=== PATIENT | female | born 1970 | race Caucasian/White ===

== ENCOUNTER 2017-04-14 15:00 | Outpatient (RCR) | payer OTHER | END 2017-04-15 | disposition home or self-care (01) | PROVIDERS: ATTEND Physical Medicine & Rehabilitation | DX: M54.2 Cervicalgia (principal) ==

== ENCOUNTER 2019-06-18 22:24 | Emergency (ER) | payer SELFPAY ==
[~2019-06-18] VITALS: Ht 170 cm; Wt 123.2 kg
[2019-06-18] MEDS ORDERED: MEDR10TA9 (22:36)
[2019-06-18] MEDS ORDERED: LEVO50TA (22:36)
--- NOTE | 2019-06-18 22:40 | ED Integumentary General ---
General Chief Complaint: Allergic Reaction Stated Complaint: HIVES, SWOLLEN, TROUBLE BREATHING AND SWALLOWING Source: patient, spouse Exam Limitations: no limitations History of Present Illness Date Seen by Provider: Jun 18, 2019 Time Seen by Provider: 22:22 Initial Comments Patient presents to ER by private conveyance with her significant other and chief complaint that since yesterday she's had a red itchy rash over her forearms another sun exposed placed. Today she got a little worse in her face. She's been using a Benadryl cream but she thought that it burned the worse. She's not having any stridor or wheezing shortness of air but she said it was hard to swallow occasionally is worried she might be developing anaphylaxis for the last 2 days. She's been stable on Synthroid and a shot monthly to restart her period. She's never had anaphylaxis before. She denies a history of lung disease. She follows with a doctor in [place], [place]. She is in the process of switching to a doctor locally. Allergies and Home Medications Patient Home Medication List Home Medication List Reviewed: Yes Review of Systems Review of Systems Constitutional: No chills, No diaphoresis EENTM: No ear discharge, No hearing loss Respiratory: No cough, No dyspnea on exertion, No short of breath, No stridor, No wheezing Cardiovascular: No chest pain, No edema, No palpitations Gastrointestinal: No abdominal pain, No melena, No nausea Genitourinary: No discharge, No dysuria Past Gaaysdn-Cnytvh-Ojxgzr Hx Patient Social History Alcohol Use: Denies Use Recreational Drug Use: No Smoking Status: Never a Smoker Recent Foreign Travel: No Contact w/Someone Who Travel: No Physical Exam Vital Signs Capillary Refill : General Appearance: WD/WN, no apparent distress HEENT: PERRL/EOMI, normal ENT inspection, pharynx normal Neck: full range of motion, supple, normal inspection Cardiovascular: normal peripheral pulses, regular rate, rhythm Respiratory: no respiratory distress, no accessory muscle use Progress/Results/Core Measures Progress Progress Note : Time: 22:39 Progress Note Patient demonstrates no evidence of acute respiratory distress, stridor, difficulty swallowing. She does not have an enlarged tongue or soft tissues of the retro-oropharynx. Departure Impression Primary Impression: Rash and nonspecific skin eruption Disposition: 01 HOME, SELF-CARE Condition: Stable Departure-Patient Inst. Decision time for Depature: 22:42 Referrals: NO,LOCAL PHYSICIAN (PCP) Primary Care Physician Patient Instructions: Skin Rash (DC) Add. Discharge Instructions: The Depo-Medrol should kick in in 12-24 hours and last about 5-7 days help care of the rash. Claritin one tablet daily for itching. Benadryl 1-2 tablets every 6 hours as needed for breakthrough itching. Use a quality skin care lotion with SPF 15 or higher. All discharge instructions reviewed with patient and/or family. Voiced understanding. ONEYDA SORIANO J Jun 18, 2019 22:40
[2019-06-18] MEDS ORDERED: methylPREDNISolone 40 MG/ML (DEPO MEDROL) VIAL IM ONE (22:45)
[2019-06-18 23:01] VITALS: BP 157/80
== END 2019-06-18 23:00 | disposition home or self-care (01) ==
LOC: EDUNIT# 22:24 → ER 22:26
DX: R21 Rash and other nonspecific skin eruption (principal)
CPT/HCPCS: 96372; 99284

== ENCOUNTER 2019-07-06 17:57 | Emergency (ER) | payer SELFPAY ==
[~2019-07-06] VITALS: Ht 170 cm; Wt 119.0 kg
[~2019-07-06 17:57] MED LIST: LEVO50TA; MEDR10TA9
[2019-07-06 18:45] LABS: BASOPHILS % (AUTO) 0 % (0-10); EOSINOPHILS % (AUTO) 0 % (0-10); HEMATOCRIT 41 % (35-52); HEMOGLOBIN 13.6 G/DL (11.5-16.0); LYMPHOCYTES # (AUTO) 1.8 X 10^3 (1.0-4.0); LYMPHOCYTES % (AUTO) 6 % (12-44); MEAN CORPUSCULAR HEMOGLOBIN 28 PG (25-34); MEAN CORPUSCULAR HGB CONC 33 G/DL (32-36); MEAN CORPUSCULAR VOLUME 83 FL (80-99); MEAN PLATELET VOLUME 11.3 FL (7.4-10.4); MONOCYTES % (AUTO) 6 % (0-12); NEUTROPHILS % (AUTO) 88 % (42-75); PLATELET COUNT 340 10^3/uL (130-400); RED CELL DISTRIBUTION WIDTH 13.8 % (10.0-14.5)
[2019-07-06] MEDS ORDERED: FAMOTIDINE 20MG/2ML IV (PEPCID) IVP ONE (18:45)
[2019-07-06] MEDS ORDERED: diphenhydrAMINE 50 MG/ML INJ (BENADRYL) IVP ONE (18:45)
[2019-07-06 18:54] LABS: WHITE BLOOD COUNT 32.9 10^3/uL (4.3-11.0)
[2019-07-06 18:55] LABS: ALBUMIN 4.3 GM/DL (3.2-4.5); BILIRUBIN,TOTAL 0.3 MG/DL (0.1-1.0); CALCIUM 9.4 MG/DL (8.5-10.1); CREATININE SERUM 1.02 MG/DL (0.60-1.30); POTASSIUM 4.1 MMOL/L (3.6-5.0); TOTAL PROTEIN 8.4 GM/DL (6.4-8.2)
--- NOTE | 2019-07-06 19:02 | NUR ---
REPORT TO DEIDRE MCNULTY
[2019-07-06 19:15] LABS: TSH (THYROID ANALYZER) 1.15 UIU/ML (0.35-4.94)
[2019-07-06 19:34] LABS: BASOPHILS % (MANUAL) 0 %; EOSINOPHILS % (MANUAL) 0 %; LYMPHOCYTES % (MANUAL) 9 %; MONOCYTES % (MANUAL) 5 %; NEUTROPHILS % (MANUAL) 86 %; RBC MORPH NORMAL
[2019-07-06 19:38] LABS: TOXIC GRANULATION/VACUOLAZATIO 1+
--- NOTE | 2019-07-06 20:06 | ED General ---
General Chief Complaint: Respiratory Problems Stated Complaint: SOA Nursing Triage Note: STATES SHE WAS SEEN IN [place] LAST NIGHT FOR AN ALLERGIC REACTION, WAS GIVEN A MEDROL DOSE SIRI THAT SHE STARTED TODAY AND NOW HAS NEW ONSET SOB Nursing Sepsis Screen: No Definite Risk Source of Information: Patient Exam Limitations: No Limitations History of Present Illness Date Seen by Provider: Jul 06, 2019 Time Seen by Provider: 18:18 Initial Comments This 48-year-old woman presents to the emergency room with concerns about possible allergic reaction. She developed symptoms 2 days ago that included swelling of the face, redness of the skin, itching, difficulty breathing, and throat irritation. She went to her doctor and was referred to urgent care. There she received an injection of steroids and was started on a Medrol Dosepak along with hydroxyzine. Today she had some rebound of symptoms after taking her methylprednisolone. She states the difficulty breathing resolved by the time of her assessment. She does still have some mild itching and feels flushed. She is afebrile. She last took hydroxyzine and the Medrol dose earlier this afternoon. She had a similar reaction on June 18. She thought perhaps symptoms are related to Synthroid and Synthroid was stopped. She has appointment with an publications inspector July 20. She sees a primary care provider in [place]. Patient reports having hives earlier this evening that are now resolved. She states an allergy to prednisone. There are no hives evident at this time. Cheeks are slightly flushed. No swelling is evident. She seems slightly anxious. Allergies and Home Medications Allergies Coded Allergies: baclofen (Verified Allergy, Unknown, 06/18/19) cephalexin (Verified Allergy, Unknown, 06/18/19) cyclosporine (Verified Allergy, Unknown, 06/18/19) gabapentin (Verified Allergy, Unknown, 06/18/19) prednisone (Verified Allergy, Unknown, 06/18/19) Patient Home Medication List Home Medication List Reviewed: Yes Review of Systems Review of Systems Constitutional: no symptoms reported EENTM: see HPI Respiratory: see HPI Cardiovascular: no symptoms reported Gastrointestinal: no symptoms reported Genitourinary: no symptoms reported : No Musculoskeletal: no symptoms reported Skin: see HPI Psychiatric/Neurological: See HPI Hematologic/Lymphatic: No Symptoms Reported Immunological/Allergic: see HPI Past Uxnbqhz-Ygxsdu-Jhbjqn Hx Past Med/Social Hx: Reviewed Nursing Past Med/Soc Hx, Reviewed and Corrections made Patient Social History Alcohol Use: Denies Use Recreational Drug Use: No Smoking Status: Never a Smoker 2nd Hand Smoke Exposure: No Recent Foreign Travel: No Contact w/Someone Who Travel: No Recent Infectious Disease Expo: No Recent Hopitalizations: No Physical Abuse: No Sexual Abuse: No Mistreated: No Fear: No Immunizations Up To Date Tetanus Booster (TDap): Unknown Seasonal Allergies Seasonal Allergies: No Past Medical History Surgeries: Yes (dental) Gallbladder Respiratory: No Cardiac: No Neurological: No Genitourinary: No Gastrointestinal: No Musculoskeletal: No Endocrine: Yes Hypothyroidsim, Diabetes, Non-Insulin dep HEENT: No Cancer: No Psychosocial: No Integumentary: No Blood Disorders: No Physical Exam Vital Signs Vital Signs - First Documented 07/06/19 17:57 Temp 37.2 Pulse 89 Resp 24 B/P (MAP) 158/88 (111) Capillary Refill : Less Than 3 Seconds Height, Weight, BMI Height: '" Weight: lbs. oz. kg; 41.00 BMI Method: General Appearance: No Apparent Distress, WD/WN, Other (slightly anxious) HEENT: PERRL/EOMI, Other (oropharynx minimally erythematous with no edema noted. Cheeks are mildly flushed.) Neck: Normal Inspection Respiratory: Lungs Clear, Normal Breath Sounds, No Accessory Muscle Use, No Respiratory Distress; No Wheezing; Other (no wheezing or prolonged expiratory phase when expiration is forced) Cardiovascular: Regular Rate, Rhythm, No Edema, No Murmur Extremity: Normal Inspection, No Pedal Edema Neurologic/Psychiatric: Alert, Oriented x3, No Motor/Sensory Deficits, Normal Mood/Affect, continuous improvement analyst II-XII Norm as Tested Skin: Normal Color, Warm/Dry; No Rash; Other (cheeks mildly flushed) Progress/Results/Core Measures Suspected Sepsis Recent Fever Within 48 Hours: No Infection Criteria Present: None New/Unexplained Altered Menta: No Sepsis Screen: No Definite Risk SIRS Temperature: Pulse: 89 Respiratory Rate: 24 Laboratory Tests 07/06/19 17:59: White Blood Count 32.9*H Blood Pressure 158 /88 Mean: 111 Laboratory Tests 07/06/19 17:59: Creatinine 1.02, Platelet Count 340, Total Bilirubin 0.3 Results/Orders Lab Results Laboratory Tests Test 07/06/19 17:59 07/06/19 18:29 Range/Units White Blood Count 32.9 *H 4.3-11.0 10^3/uL Red Blood Count 4.92 4.35-5.85 10^6/uL Hemoglobin 13.6 11.5-16.0 G/DL Hematocrit 41 35-52 % Mean Corpuscular Volume 83 80-99 FL Mean Corpuscular Hemoglobin 28 25-34 PG Mean Corpuscular Hemoglobin Concent 33 32-36 G/DL Red Cell Distribution Width 13.8 10.0-14.5 % Platelet Count 340 130-400 10^3/uL Mean Platelet Volume 11.3 H 7.4-10.4 FL Neutrophils (%) (Auto) 88 H 42-75 % Lymphocytes (%) (Auto) 6 L 12-44 % Monocytes (%) (Auto) 6 0-12 % Eosinophils (%) (Auto) 0 0-10 % Basophils (%) (Auto) 0 0-10 % Neutrophils # (Auto) 29.0 H 1.8-7.8 X 10^3 Lymphocytes # (Auto) 1.8 1.0-4.0 X 10^3 Monocytes # (Auto) 2.0 H 0.0-1.0 X 10^3 Eosinophils # (Auto) 0.0 0.0-0.3 10^3/uL Basophils # (Auto) 0.0 0.0-0.1 10^3/uL Neutrophils % (Manual) 86 % Lymphocytes % (Manual) 9 % Monocytes % (Manual) 5 % Eosinophils % (Manual) 0 % Basophils % (Manual) 0 % Toxic Granulation 1+ Blood Morphology Comment NORMAL Erythrocyte Sedimentation Rate 13 0-20 MM/HR Sodium Level 138 135-145 MMOL/L Potassium Level 4.1 3.6-5.0 MMOL/L Chloride Level 105 98-107 MMOL/L Carbon Dioxide Level 25 21-32 MMOL/L Anion Gap 8 5-14 MMOL/L Blood Urea Nitrogen 14 7-18 MG/DL Creatinine 1.02 0.60-1.30 MG/DL Estimat Glomerular Filtration Rate 58 BUN/Creatinine Ratio 14 Glucose Level 157 H 70-105 MG/DL Calcium Level 9.4 8.5-10.1 MG/DL Corrected Calcium 9.2 8.5-10.1 MG/DL Total Bilirubin 0.3 0.1-1.0 MG/DL Aspartate Amino Transf (AST/SGOT) 30 5-34 U/L Alanine Aminotransferase (ALT/SGPT) 71 H 0-55 U/L Alkaline Phosphatase 115 40-136 U/L C-Reactive Protein High Sensitivity 2.54 H 0.00-0.50 MG/DL Total Protein 8.4 H 6.4-8.2 GM/DL Albumin 4.3 3.2-4.5 GM/DL TSH [facility] Testing 1.15 0.35-4.94 UIU/ML Group A Streptococcus Screen NEGATIVE NEGATIVE My Orders Orders - DYLAN EASON MD Cbc With Automated Diff (07/06/19 18:36) Comprehensive Metabolic Panel (07/06/19 18:36) Hs C Reactive Protein (07/06/19 18:36) Rapid Strep A Screen (07/06/19 18:36) Thyroid Analyzer (07/06/19 18:36) Ed Iv/Invasive Line Start (07/06/19 18:36) Diphenhydramine Injection (Benadryl Inje (07/06/19 18:45) Famotidine Injection (Pepcid Injection) (07/06/19 18:45) Manual Differential (07/06/19 17:59) Erythrocyte Sedimentation Rate (07/06/19 18:55) Medications Given in ED Current Medications Medications Dose Ordered Sig/Dominic Route Start Time Stop Time Status Last Admin Dose Admin Diphenhydramine HCl 25 mg ONCE ONCE IVP 07/06/19 18:45 07/06/19 18:46 DC 07/06/19 18:49 25 MG Famotidine 20 mg ONCE ONCE IVP 07/06/19 18:45 07/06/19 18:46 DC 07/06/19 18:49 20 MG Vital Signs/I&O 07/06/19 17:57 Temp 37.2 Pulse 89 Resp 24 B/P (MAP) 158/88 (111) Capillary Refill : Less Than 3 Seconds Blood Pressure Mean: 111 Progress Note : Progress Note Patient was treated with Pepcid and Benadryl. She did have improvement in her itching. There were no respiratory problems on exam. Vital signs are stable. Leukocytosis was noted beyond what I would expect for steroid-induced leukocytosis. I discussed the case with Dr. Andres Carver. She believes this is still steroid-induced based on the normal hemoglobin, RBC, eosinophil, and platelet counts. A referral in 2 weeks as appropriate for further evaluation. Patient is concerned that she may be adversely reacting to the methylprednisolone. She is going to stop this and try a long-acting antihistamine and Pepcid with hydroxyzine or Benadryl for breakthrough symptoms. I do not see clear evidence of acute allergic reaction on him today. I do wo nder if she has some environmental triggers for bronchospasm. I offered an inhaler which she declined. Departure Impression Primary Impression: Leukocytosis Qualified Codes: D72.829 - Elevated white blood cell count, unspecified Additional Impressions: Throat irritation Pruritus Dyspnea Qualified Codes: R06.00 - Dyspnea, unspecified Disposition: HOME, SELF-CARE Condition: Improved Departure-Patient Inst. Referrals: NO,LOCAL PHYSICIAN (PCP) Primary Care Physician SCOTTY CARVER MD Patient Instructions: Hives Add. Discharge Instructions: The exact cause of your symptoms is uncertain. It does not appear to be infectious. There may be some component of allergy or environmental triggered asthma. If you believe the methylprednisolone is worsening her symptoms, you may stop that medication. Alternatively you may take a long-acting antihistamine such as Zyrtec (cetirizine) daily in combination with absent (famotidine) 20 mg twice daily to help control symptoms. You may additionally add hydroxyzine as prescribed or Benadryl (diphenhydramine) up to 50 mg every 4 hours as needed for exacerbation of hives or itching. If symptoms become severe causing throat, tongue, or lip swelling or shortness of air, return to care. To reevaluate your high white blood cell count (leukocytosis) please either follow-up with your primary care provider in 2 weeks to repeat blood counts or follow-up with Dr. Andres Carver at the [facility]. All discharge instructions reviewed with patient and/or family. Voiced understanding. Copy Copies To 1: SCOTTY CARVER MD, JOSHUA T MD Jul 06, 2019 20:06
[2019-07-06 20:17] VITALS: BP 108/77
== END 2019-07-06 20:17 | disposition home or self-care (01) ==
LOC: ER 17:57 → EDUNIT# 17:57 → ER 20:17
DX: D72.829 Elevated white blood cell count, unspecified (principal); J39.2 Other diseases of pharynx; L29.9 Pruritus, unspecified; R06.00 Dyspnea, unspecified; E11.9 Type 2 diabetes mellitus without complications; E03.9 Hypothyroidism, unspecified; Z88.8 Allergy status to other drugs, medicaments and biological substances; Z88.1 Allergy status to other antibiotic agents
CPT/HCPCS: 36415; 80053; 84443; 85007; 85027; 85652; 86141; 87430

== ENCOUNTER 2019-10-03 09:22 | Outpatient (RCR) | payer SELFPAY ==
[2019-10-03 09:58] LABS: BASOPHILS # (AUTO) 0.1 10^3/uL (0.0-0.1); BASOPHILS % (AUTO) 1 % (0-10); EOSINOPHILS # (AUTO) 0.4 10^3/uL (0.0-0.3); EOSINOPHILS % (AUTO) 4 % (0-10); HEMATOCRIT 43 % (35-52); HEMOGLOBIN 13.9 G/DL (11.5-16.0); LYMPHOCYTES # (AUTO) 2.2 X 10^3 (1.0-4.0); LYMPHOCYTES % (AUTO) 18 % (12-44); MEAN CORPUSCULAR HEMOGLOBIN 28 PG (25-34); MEAN CORPUSCULAR HGB CONC 33 G/DL (32-36); MEAN CORPUSCULAR VOLUME 85 FL (80-99); MEAN PLATELET VOLUME 10.8 FL (7.4-10.4); MONOCYTES # (AUTO) 0.8 X 10^3 (0.0-1.0); MONOCYTES % (AUTO) 6 % (0-12); NEUTROPHILS # (AUTO) 8.9 X 10^3 (1.8-7.8); NEUTROPHILS % (AUTO) 72 % (42-75); PLATELET COUNT 339 10^3/uL (130-400); WHITE BLOOD COUNT 12.4 10^3/uL (4.3-11.0)
[2019-10-03 10:13] LABS: ALBUMIN 4.3 GM/DL (3.2-4.5); BILIRUBIN,TOTAL 0.6 MG/DL (0.1-1.0); CREATININE SERUM 1.11 MG/DL (0.60-1.30); POTASSIUM 3.7 MMOL/L (3.6-5.0); TOTAL PROTEIN 7.6 GM/DL (6.4-8.2)
== END 2020-01-01 | disposition home or self-care (01) ==
LOC: ONC 09:22
PROVIDERS: ATTEND Internal Medicine Hematology & Oncology
DX: D72.829 Elevated white blood cell count, unspecified (principal); E03.9 Hypothyroidism, unspecified; E66.9 Obesity, unspecified; T78.40XA Allergy, unspecified, initial encounter
CPT/HCPCS: 80053; 85025; 99214